=== PATIENT | female | born 1980 | race Caucasian/White ===

== ENCOUNTER → 2025-02-04 08:38 | Outpatient (CLI) | payer OTHER, SELFPAY ==
--- NOTE | 2025-02-04 08:39 | DI.US.S_ITS ---
PROCEDURE: US PELVIC COMPLETE INDICATIONS: PAIN. PARTIAL HYSTERECTOMY AND OVARIAN CYST REMOVAL. TECHNIQUE: Real-time scanning was performed of the pelvic organs, with image documentation. Additional endovaginal scanning was necessary due to incomplete visualization of the adnexal and endometrial structures by transabdominal scanning. COMPARISON: None. FINDINGS: Uterus: Hysterectomy Ovaries: The right ovary measures 4.0 x 3.2 x 2.2 cm, with a calculated ovarian volume of 14.7 cc. The left ovary measures 5.1 x 3.1 x 3.8 cm, with a calculated ovarian volume of 31.4 cc. The ovaries have a normal sonographic appearance. Less than 12 follicles can be seen in each ovary. No adnexal masses are seen. Complex right ovarian cysts measure 1.4 cm and 1.2 cm. Complex left ovarian cysts measure up to 3.3 cm Other: No pathologic free abdominal or pelvic fluid. IMPRESSION: Complex bilateral ovarian cysts as above probably reflect small hemorrhagic cysts. Consider single follow-up in 3-4 months to reassess. Approved by: Giuliano Walker M.D. on 02/04/2025 at 17:37
== END ==
LOC: US 08:39
PROVIDERS: Visit Provider Obstetrics & Gynecology
DX: R10.20 Pelvic and perineal pain unspecified side (principal); N83.201 Unspecified ovarian cyst, right side; N83.202 Unspecified ovarian cyst, left side; Z90.710 Acquired absence of both cervix and uterus; Z87.42 Personal history of other diseases of the female genital tract
CPT/HCPCS: 76830; 76856; 93975